=== PATIENT | female | born 1955 | race Caucasian/White ===

== ENCOUNTER 2023-08-04 15:26 | Outpatient (CLI) | payer MEDICARE | END 2023-08-04 15:27 | disposition home or self-care (01) | LOC: SCSRAD 15:26 | PROVIDERS: ATTEND Physician Assistant | DX: M54.41 Lumbago with sciatica, right side (principal); M54.42 Lumbago with sciatica, left side | CPT/HCPCS: 72100 ==

== ENCOUNTER 2025-07-11 06:39 | Day surgery (SDC) | payer MEDICARE ==
[2025-07-10 13:12] VITALS: BMI 25.9
[2025-07-11] MEDS ORDERED: Lidocaine 1% PF 5 ML VIAL ONE (08:36)
[2025-07-11] MEDS ORDERED: PROPOFOL 200 MG/20 ML VIAL ONE (08:44)
== END 2025-07-11 10:05 | disposition home or self-care (01) ==
LOC: SDC 06:39
PROVIDERS: ATTEND Internal Medicine
PROC: 0DBK8ZZ Excision of Ascending Colon, Via Natural or Artificial Opening Endoscopic (ICD-10-PCS; principal; 2025-07-11)
DX: D12.2 Benign neoplasm of ascending colon (principal); K57.30 Diverticulosis of large intestine without perforation or abscess without bleeding; K64.8 Other hemorrhoids; Z90.49 Acquired absence of other specified parts of digestive tract; Z86.0100 Personal history of colon polyps, unspecified; Z91.0110 Allergy to milk products, unspecified; Z88.5 Allergy status to narcotic agent
CPT/HCPCS: 88305; J2704